=== PATIENT | male | born 1990 | race Two or more races ===

== ENCOUNTER 2017-05-04 14:55 | Emergency (ER) | payer SELFPAY ==
[2017-05-04] MEDS ORDERED: LORATADINE 10 MG TABLET PO ONE (17:25)
[2017-05-04] MEDS ORDERED: PSEUDOEPHEDRINE HCL 30 MG TABLET PO ONE (17:25)
[2017-05-04] MEDS ORDERED: GUAIFENESIN 600 MG TABLET.SA PO ONE (17:25)
[2017-05-04] MEDS ORDERED: IBUPROFEN 600 MG TABLET PO ONE (17:26)
--- NOTE | 2017-05-04 17:30 | ER Document Report ---
ED ENT - General Chief Complaint: Sore Throat Stated Complaint: POSSIBLE FLU Time Seen by Provider: 05/04/17 17:07 Mode of Arrival: Ambulatory Information source: Patient Notes: 26-year-old male presented ED for cough cold congestion sore throat started last week. States he had some vomiting but none today. States he coughed up some phlegm but no actual expectorant. States he has had a sore throat for week fever for a week but none in the last 2 days. TRAVEL OUTSIDE OF THE [place] IN LAST 30 DAYS: No - HPI Patient complains to provider of: Nose problem, Throat problem Onset: Last week Onset/Duration: Intermittent Quality of pain: Sharp Severity: Moderate Pain Level: 2 Context: Recent Illness Location of pain: Face, Nose, Sinus, Throat Associated symptoms: Chills, Congestion, Cough, Runny nose, Sinus pain, Sinus drainage, Sore throat Similar symptoms previously: Yes Recently seen / treated by doctor: No - Related Data Allergies/Adverse Reactions: No Known Allergies Allergy (Verified 05/04/17 14:56) Past Medical History - General Information source: Patient - Social History Smoking Status: Current Every Day Smoker Cigarette use (# per day): Yes - 2-3 cigarettes a day Smoking Education Provided: Yes - 4 minutes Frequency of alcohol use: Rare Drug Abuse: Marijuana Occupation: Counseling Aide Lives with: Friend Family History: CAD, CVA, DM, Hyperlipidemia, Hypertension, Malignancy. denies : Arthritis, COPD, Thyroid Disfunction Patient has suicidal ideation: No Patient has homicidal ideation: No - Past Medical History Cardiac Medical History: Reports: None Pulmonary Medical History: Reports: None EENT Medical History: Reports: None Neurological Medical History: Reports: None Endocrine Medical History: Reports: None Renal/ Medical History: Reports: None Malignancy Medical History: Reports None GI Medical History: Reports: None Musculoskeltal Medical History: Reports None Skin Medical History: Reports None Psychiatric Medical History: Reports: None Traumatic Medical History: Reports: None Infectious Medical History: Reports: None Surgical Hx: Negative Past Surgical History: Reports: None Review of Systems - Review of Systems Notes: Constitutional: [PRESENT: as per HPI. ABSENT: weight gain, weight loss] complains of fevers chills headaches last week no fever last 2 days Eyes: [ABSENT: visual disturbances] Ears: [ABSENT: hearing changes] Nasopharyngeal: Complains of congestion runny nose sore throat Cardiovascular: [ABSENT: chest pain, dyspnea on exertion, edema, orthropnea, palpitations] Respiratory: Complains of cough with expectorant of phlegm Gastrointestinal: [ABSENT: abdominal pain, constipation, hematemesis, hematochezia] states he has had diarrhea or nausea and vomiting off and on but none today. Genitourinary: [ABSENT: dysuria, hematuria] Musculoskeletal: [ABSENT: joint swelling] complains of body aches Integumentary: [ABSENT: rash, wounds] Neurological: [ABSENT: abnormal gait, abnormal speech, confusion, dizziness, focal weakness, syncope] Psychiatric: [ABSENT: anxiety, depression, homicidal ideation, suicidal ideation ] Endocrine: [ABSENT: cold intolerance, heat intolerance, menstrual abnormalities , polydipsia, polyuria] Hematologic/Lymphatic: [ABSENT: easy bleeding, easy bruising, lymphadenopathy] Physical Exam - Vital signs Vitals: Temp Pulse Resp BP Pulse Ox 98.9 F 85 16 127/75 H 97 05/04/17 14:59 05/04/17 14:59 05/04/17 14:59 05/04/17 14:59 05/04/17 14:59 - Notes Notes: PHYSICAL EXAMINATION: GENERAL: Well-appearing, well-nourished and in no acute distress. HEAD: Atraumatic, normocephalic. EYES: Pupils equal round and reactive to light, extraocular movements intact, sclera anicteric, conjunctiva are normal. ENT: Erythematous nasal turbinates with purulent nasal drainage, postnasal drip , erythematous pharynx without exudates. Moist mucous membranes. NECK: Normal range of motion, supple without lymphadenopathy LUNGS: Breath sounds clear to auscultation bilaterally and equal. No wheezes rales or rhonchi. HEART: Regular rate and rhythm without murmurs ABDOMEN: Soft, nontender, nondistended abdomen. No guarding, no rebound. No masses appreciated. Musculoskeletal: Normal range of motion, no pitting or edema. No cyanosis. NEUROLOGICAL: Cranial nerves grossly intact. Normal speech, normal gait. Normal sensory, motor exams PSYCH: Normal mood, normal affect. SKIN: Warm, Dry, normal turgor, no rashes or lesions noted. Course - Re-evaluation Re-evalutation: 05/05/17 01:16 Assessment consistent with an upper respiratory infection. Patient was treated with Mucinex Claritin and Sudafed and ibuprofen. Patient was given instructions on things that he can use for his cough and cold symptoms. Patient verbalized understanding of instructions. Patient to follow-up with his primary doctor. - Vital Signs Vital signs: Temp Pulse Resp BP Pulse Ox 98.9 F 71 18 132/82 H 99 05/04/17 14:59 05/04/17 17:46 05/04/17 17:46 05/04/17 17:46 05/04/17 17:46 Discharge - Discharge Clinical Impression: Viral syndrome, Sore throat (viral) URI (upper respiratory infection) Qualifiers: URI type: unspecified URI Qualified Code(s): J06.9 - Acute upper respiratory infection, unspecified Disposition: HOME, SELF-CARE Instructions: Family Physicians / Practices Additional Instructions: Viral Syndrome The physician has diagnosed a viral infection. Viruses not only cause "colds," but can cause many different symptoms including generalized aching, fever, headache, cough, diarrhea, nausea, vomiting, and fatigue. The treatment, for the most part, is simply relief of symptoms. This means that antibiotics are usually not given. Rest, fluids, pain medications and, occasionally, medication for the specific symptoms that are most bothersome will be prescribed. Use good handwashing to avoid passing the virus to others. Shared toys should be cleaned with disinfectant. Clean the toilets, sinks, and counter surfaces in bathrooms. Launder clothing in hot water. Contact the physician if you develop any new or unusual symptoms such as severe headache, stiff neck, high fever, chest pain, productive cough, or shortness of breath. You should be rechecked if you don't see marked improvement within seven to 10 days. SORE THROAT: Sore throats may be caused by viruses, bacteria, or fungi. Most are due to a virus, and must get better on their own. Bacterial sore throats, particularly those due to "strep," need treatment with antibiotics. If an antibiotic is prescribed, be sure to take the medication for a full 10 days. Failure to take the antibiotic can result in complications such as rheumatic fever. Sometimes, an injection of antibiotics is given instead of pills or liquid. This single "shot" is equal in effectiveness to the oral medication. To relieve symptoms, take acetaminophen for pain. Sip clear liquids frequently, or eat popsicles or ice chips. Anesthetic sprays or lozenges may help. Make sure the air in the room is not too dry. Avoid using decongestants or antihistamines. Call the doctor if there is no improvement in two days, or if you have difficulty breathing, increasing throat pain, high fever, rash, or frequent vomiting. UPPER RESPIRATORY ILLNESS: You have a viral infection of the respiratory passages -- a "cold." This common infection causes nasal congestion, drainage, and often sore throat and cough. It is highly contagious. The disease usually lasts about 10 to 14 days. There is no "cure" for the viral infection -- it must run its course. If there is a complication, such as bacterial infection in the nose, sinuses, middle ear, or bronchial tubes, antibiotics may be required. The antibiotics won't affect the virus. Drink plenty of fluids. A humidifier may help. An expectorant medication or decongestant may make you more comfortable. Use acetaminophen or ibuprofen for fever or aches. See the doctor if fever persists over two days, if there is any significant worsening of your symptoms, or if you simply fail to improve as expected. DECONGESTANT MEDICATION: A decongestant medicine has been prescribed. Often this medicine is combined in the same tablet with an antihistamine or expectorant. This type of medicine is helpful in treating a bad cold or sinus condition, as well as in treatment of the nasal congestion of hay fever. It is not of much benefit for lung infections. Decongestant medicines are related to stimulants. They can cause an increase in blood pressure and heart rate. Persons with heart disease and high blood pressure should not take decongestants without discussing this with the physician. If you develop palpitations, chest pain, headache, or tremors, stop the medicine and consult your physician. COUGH-SUPPRESSANT & EXPECTORANT MEDICATION: You are to use a cough medication as needed for relief of symptoms. This medicine is a combination of an expectorant (to make the mucous thinner and more easily "coughed up") and a cough suppressant (to reduce the frequency of coughing). The cough-suppressant medicine is related to narcotics. You may experience mild nausea and sleepiness. Some patients who are very sensitive to narcotics may have stomach pain from this medicine. Taking the medicine with food reduces these side effects. Do not drive or work with machinery until you know how this medicine affects you. The expectorant should have no side effects. Iodine-containing expectorants (such as organidin) should not be taken by persons with active thyroid disease unless approved by your doctor. Call the doctor if you develop shortness of breath, hives, rash, itching, lightheadedness, or severe nausea and vomiting. USE OF ACETAMINOPHEN (Tylenol): Acetaminophen may be taken for pain relief or fever control. It's much safer than aspirin, offering a wider range of "safe" dosages. It is safe during . Some brand names are Tylenol, Panadol, Datril, Anacin 3, Tempra, and Liquiprin. Acetaminophen can be repeated every four hours. The following are maximum recommended dosages: >89 pounds or adults 650 mg to 900 mg Acetaminophen can be repeated every four hours. Maximum dose not to exceed 4000 mg a day. SMOKING: If you smoke, you should stop smoking. The tar and chemicals in cigarette smoke are harmful. Smoking has been shown to cause: emphysema chronic bronchitis lung cancer mouth and throat cancer stomach and pancreas cancer premature aging defects In addition, smoking increases ear and lung infections in children of smokers. He had been treated with Claritin 10 mg, Sudafed 30 mg, Mucinex 600 mg, and ibuprofen 600 mg in the emergency room. These are all [id number]. These were all help your symptoms. He can also try Flonase 2 sprays each nostril twice a day up with your symptoms. Another remedy to help with your cough and cold symptoms is salt and soda solution gargles Salt and soda solution 1 quart of water 1 tablespoon of salt 1 teaspoon of baking soda Mixed 3 ingredients together and boil for 1 minute Placed in a covered quart jar Use 1/2 ounce of cold solution to gargle 3 times a day FOLLOW-UP CARE: If you have been referred to a physician for follow-up care, call the physician s office for an appointment as you were instructed or within the next two days. If you experience worsening or a significant change in your symptoms, notify the physician immediately or return to the Emergency Department at any time for re-evaluation. Forms: Elevated Blood Pressure, Smoking Cessation Education, Return to Work
[2017-05-04 17:47] VITALS: BP 132/82
== END 2017-05-04 17:47 | disposition home or self-care (01) ==
LOC: ER 14:55
DX: J06.9 Acute upper respiratory infection, unspecified (principal); J02.8 Acute pharyngitis due to other specified organisms; B97.89 Other viral agents as the cause of diseases classified elsewhere; R05 Cough; J34.89 Other specified disorders of nose and nasal sinuses; F17.210 Nicotine dependence, cigarettes, uncomplicated; Z71.6 Tobacco abuse counseling
CPT/HCPCS: 99282; 99406

== ENCOUNTER 2017-06-06 17:02 | Emergency (ER) | payer SELFPAY ==
[2017-06-06] MEDS ORDERED: ONDANSETRON 4 MG TAB.RAPDIS PO ONE (18:13)
--- NOTE | 2017-06-06 18:15 | ER Document Report ---
ED General - General Chief Complaint: Vomiting/Diarrhea Stated Complaint: VOMITING Time Seen by Provider: 06/06/17 18:00 Mode of Arrival: Ambulatory Information source: Patient Notes: 19-year-old male presents with complaints of abdominal pain nausea vomiting diarrhea this morning. Patient notes he has had 5 episodes of vomiting one episode with streaks of red blood. One episode of diarrhea with no blood. Patient notes only pain in the epigastric region. He denies any chills admits to mild fever at home TRAVEL OUTSIDE OF THE [place] IN LAST 30 DAYS: No - HPI Onset: Just prior to arrival Onset/Duration: Sudden Quality of pain: Sharp Severity: Mild Pain Level: 1 Associated symptoms: Diarrhea, Nausea, Vomiting Exacerbated by: Denies Relieved by: Denies Similar symptoms previously: No Recently seen / treated by doctor: No - Related Data Allergies/Adverse Reactions: No Known Allergies Allergy (Verified 05/04/17 14:56) Past Medical History - Social History Smoking Status: Never Smoker Cigarette use (# per day): No Chew tobacco use (# tins/day): No Smoking Education Provided: No Family History: CAD, CVA, DM, Hyperlipidemia, Hypertension, Malignancy. denies : Arthritis, COPD, Thyroid Disfunction Renal/ Medical History: Denies: Hx Peritoneal Dialysis Review of Systems - Review of Systems Notes: REVIEW OF SYSTEMS: CONSTITUTIONAL : Denies fever, chills, or sweats. Denies recent illness. EENT: Denies eye, ear, throat, or mouth pain or symptoms. Denies nasal or sinus congestion or discharge. Denies throat, tongue, or mouth swelling or difficulty swallowing. CARDIOVASCULAR: Denies chest pain. Denies palpitations or racing or irregular heart beat. Denies ankle edema. RESPIRATORY: Denies cough, cold, or chest congestion. Denies shortness of breath, difficulty breathing, or wheezing. GASTROINTESTINAL: Abdominal pain nausea vomiting diarrhea GENITOURINARY: Denies difficulty urinating, painful urination, burning, frequency, blood in urine, or discharge. MUSCULOSKELETAL: Denies back or neck pain or stiffness. Denies joint pain or swelling. SKIN: Denies rash, lesions or sores. HEMATOLOGIC : Denies easy bruising or bleeding. LYMPHATIC: Denies swollen, enlarged glands. NEUROLOGICAL: Denies confusion or altered mental status. Denies passing out or loss of consciousness. Denies dizziness or lightheadedness. Denies headache. Denies weakness or paralysis or loss of use of either side. Denies problems with gait or speech. Denies sensory loss, numbness, or tingling. Denies seizures. PSYCHIATRIC: Denies anxiety or stress. Denies depression, suicidal ideation, or homicidal ideation. ALL OTHER SYSTEMS REVIEWED AND NEGATIVE. Dictation was performed using [employer] voice recognition software PHYSICAL EXAMINATION: GENERAL: Well-appearing, well-nourished and in no acute distress. HEAD: Atraumatic, normocephalic. EYES: Pupils equal round and reactive to light, extraocular movements intact, sclera anicteric, conjunctiva are normal. ENT: Nares patent, oropharynx clear without exudates. Moist mucous membranes. NECK: Normal range of motion, supple without lymphadenopathy LUNGS: Breath sounds clear to auscultation bilaterally and equal. No wheezes rales or rhonchi. HEART: Regular rate and rhythm without murmurs ABDOMEN: Soft, nontender, nondistended abdomen. No guarding, no rebound. No masses appreciated. Musculoskeletal: Normal range of motion, no pitting or edema. No cyanosis. NEUROLOGICAL: Cranial nerves grossly intact. Normal speech, normal gait. Normal sensory, motor exams PSYCH: Normal mood, normal affect. SKIN: Warm, Dry, normal turgor, no rashes or lesions noted. Physical Exam - Vital signs Vitals: Temp Pulse Resp BP Pulse Ox 98.4 F 69 16 126/87 H 99 06/06/17 17:34 06/06/17 17:34 06/06/17 17:34 06/06/17 17:34 06/06/17 17:34 Course - Re-evaluation Re-evalutation: 06/06/17 18:15 Patient's presentation is extremely benign, he will be given Zofran for his symptoms otherwise looks well, I have very low suspicion for any life- threatening issues 06/06/17 19:57 Patient symptoms improved after Reglan I will discharge him home with nausea control and close follow-up otherwise he looks well is in no distress After performing a Medical Screening Examination, I estimate there is LOW risk for ACUTE APPENDICITIS, BOWEL OBSTRUCTION, ACUTE CHOLECYSTITIS, PERFORATED DIVERTICULITIS, INCARCERATED HERNIA, PANCREATITIS, TESTICULAR TORSION or PERFORATED ULCER, thus I consider the discharge disposition reasonable. Also, there is no evidence or peritonitis, sepsis, or toxicity. I have reevaluated this patient multiple times and no significant life threatening changes are noted. The patient and I have discussed the diagnosis and risks, and we agree with discharging home with close follow-up with the understanding that symptoms and presentations can change. We also discussed returning to the Emergency Department immediately if new or worsening symptoms occur. We have discussed the symptoms which are most concerning (e.g., bloody stool, fever, changing or worsening pain, intractable vomiting - standard verbal up date) that necessitate immediate return. - Vital Signs Vital signs: Temp Pulse Resp BP Pulse Ox 98.4 F 69 16 126/87 H 99 06/06/17 17:34 06/06/17 17:34 06/06/17 17:34 06/06/17 17:34 06/06/17 17:34 Discharge - Discharge Clinical Impression: Nausea vomiting and diarrhea Condition: Stable Disposition: HOME, SELF-CARE Instructions: Vomiting ([facility]), Viral Syndrome ([facility]) Additional Instructions: Follow up with your physician tomorrow for further care or return to the ED IMMEDIATELY if symptoms worsen or new concerns occur. If you cannot afford to follow up with your primary care physician a list of low cost clinics have been provided at the end of your discharge papers as well. Prescriptions: Metoclopramide HCl [Reglan 10 mg Tablet] 1 - 2 tab PO ASDIR PRN #25 tablet PRN Reason: Forms: Return to Work Referrals: BK ZEPEDA MD [ACTIVE STAFF] - Follow up tomorrow
[2017-06-06] MEDS ORDERED: METOCLOPRAMIDE HCL INJ/PF 10 MG/2 ML SDV IM ONE (19:00)
[2017-06-06 20:04] VITALS: BP 122/85
== END 2017-06-06 20:00 | disposition home or self-care (01) ==
LOC: ER 17:02
DX: K92.0 Hematemesis (principal); R19.7 Diarrhea, unspecified; R10.13 Epigastric pain
CPT/HCPCS: 99283; 96372; S0119; J2765

== ENCOUNTER 2017-12-15 09:02 | Emergency (ER) | payer SELFPAY ==
--- NOTE | 2017-12-15 09:22 | ER Document Report ---
ED Medical Screen (RME) - General Chief Complaint: Shortness Of Breath Stated Complaint: DIFFICULTY BREATHING Time Seen by Provider: 12/15/17 09:14 TRAVEL OUTSIDE OF THE [place] IN LAST 30 DAYS: No - HPI Patient complains to provider of: chest pain Onset: Other - This 19-year-old male with persistent chest pain over the last several months with associated cough as well as hemoptysis. He is not seen anybody for this in the past has been using Zantac without any improvement in his symptoms. Is a smoker every day. Denies any previous health history. - Related Data Allergies/Adverse Reactions: No Known Allergies Allergy (Verified 12/15/17 09:06) Past Medical History - Social History Frequency of alcohol use: Rare Drug Abuse: Marijuana Renal/ Medical History: Denies: Hx Peritoneal Dialysis Physical Exam - Vital signs Vitals: Temp Pulse Resp BP Pulse Ox 98.1 F 60 14 126/74 H 98 12/15/17 09:05 12/15/17 09:05 12/15/17 09:05 12/15/17 09:05 12/15/17 09:05 Course - Re-evaluation Re-evalutation: 12/15/17 09:22 I have performed a rapid medical screening exam, I have evaluated the patient, I have made a determination based on this patient's medical condition for further evaluation. - Vital Signs Vital signs: Temp Pulse Resp BP Pulse Ox 98.1 F 60 14 126/74 H 98 12/15/17 09:05 12/15/17 09:05 12/15/17 09:05 12/15/17 09:05 12/15/17 09:05
[2017-12-15] MEDS ORDERED: ALBUTEROL SULFATE 0.083% NEB 2.5 MG/3 ML AMPUL NEB ONE (09:23)
[2017-12-15 09:55] LABS: ABSOLUTE EOSINOPHILS # (AUTO) 0.2 10^3/uL (0.0-0.6); ABSOLUTE LYMPHOCYTES (AUTO) 2.3 10^3/uL (0.5-4.7); ABSOLUTE MONOCYTES (AUTO) 0.6 10^3/uL (0.1-1.4); ABSOLUTE NEUT (AUTO) 3.5 10^3/uL (1.7-8.2); BASOPHILS % (AUTO) 0.5 % (0-2); EOSINOPHILS % (AUTO) 2.4 % (0-6); HEMATOCRIT 43.8 % (37.9-51.0); HEMOGLOBIN 15.1 g/dL (13.5-17.0); LYMPHOCYTES % (AUTO) 34.3 % (13-45); MEAN CORPUSCULAR HEMOGLOBIN 31.4 pg (27.0-33.4); MEAN CORPUSCULAR HGB CONC 34.4 g/dL (32.0-36.0); MEAN CORPUSCULAR VOLUME 91 fl (80-97); MONOCYTES % (AUTO) 9.7 % (3-13); PLATELET COUNT 247 10^3/uL (150-450); RED CELL DISTRIBUTION WIDTH 13.4 % (11.5-14.0); SEGMENTED NEUTROPHILS % (AUTO) 53.1 % (42-78); TOTAL CELLS COUNTED % (AUTO) 100 %; WHITE BLOOD COUNT 6.6 10^3/uL (4.0-10.5)
--- NOTE | 2017-12-15 10:04 | RADIOLOGY REPORT (SQ) ---
EXAM DESCRIPTION: CHEST 2 VIEWS COMPLETED DATE/TIME: 12/15/2017 9:39 am REASON FOR STUDY: cough and chest pain COMPARISON: None. EXAM PARAMETERS: NUMBER OF VIEWS: two views TECHNIQUE: Digital Frontal and Lateral radiographic views of the chest acquired. RADIATION DOSE: NA LIMITATIONS: none FINDINGS: LUNGS AND PLEURA: No opacities, masses or pneumothorax. No pleural effusion. MEDIASTINUM AND HILAR STRUCTURES: No masses or contour abnormalities. HEART AND VASCULAR STRUCTURES: Heart normal size. No evidence for failure. BONES: No acute findings. HARDWARE: None in the chest. OTHER: No other significant finding. IMPRESSION: NO ACUTE RADIOGRAPHIC FINDING IN THE CHEST. TECHNICAL DOCUMENTATION: JOB ID: [id number] [employer]- All Rights Reserved Reading location - IP/workstation name: [email or web address]
[2017-12-15 10:17] LABS: ALANINE AMINOTRANSFERASE 45 U/L (21-72); ALBUMIN 3.2 g/dL (3.5-5.0); ALKALINE PHOSPHATASE 38 U/L (38-126); ANION GAP 6 (5-19); ASPARTATE AMINO TRANSFERASE 28 U/L (17-59); BILIRUBIN,DIRECT 0.2 mg/dL (0.0-0.4); BILIRUBIN,TOTAL 0.3 mg/dL (0.2-1.3); BLOOD UREA NITROGEN 10 mg/dL (7-20); CALCIUM 8.9 mg/dL (8.4-10.2); CARBON DIOXIDE 28 mmol/L (22-30); CHLORIDE 107 mmol/L (98-107); GLUCOSE 102 mg/dL (75-110); SODIUM 141.3 mmol/L (137-145); TOTAL PROTEIN 5.5 g/dL (6.3-8.2)
--- NOTE | 2017-12-15 12:01 | ER Document Report ---
ED General - General Chief Complaint: Shortness Of Breath Stated Complaint: DIFFICULTY BREATHING Time Seen by Provider: 12/15/17 09:14 Mode of Arrival: Ambulatory Information source: Patient, Relative Notes: Patient is a 27-year-old male comes emergency room complaining of left-sided chest pain. Patient states his been going on for 3 months and that it only hurts him at night when he sleeps and it feels like someone is sitting on his chest when he goes to sleep. States that it goes away during the day but when he is awake he does have periods of dry hacking cough. He does admit to smoking at least 1 pack of cigarettes a day. 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 Family history of leukemia diabetes and heart disease. Patient denies any fevers. Pain is located left side chest on the sternal border. Again he states it feels like someone is sitting on his chest. There is a minimal positive family history of cardiac problems father had his first NH at age 43 both grandparents have had heart attacks in her later years. Patient currently does not have any other medical problems. TRAVEL OUTSIDE OF THE [place] IN LAST 30 DAYS: No - HPI Onset: Other - 3 months Onset/Duration: Gradual, Persistent Quality of pain: Pressure Severity: Moderate Pain Level: 3 Associated symptoms: Chest pain, Nonproductive cough, Headache, Hurts to breath. denies: Earache, Fever, Sinus pain/drainage, Shortness of breath Exacerbated by: Other - Laying down, deep breathing and by palpation. Relieved by: Remaining still Similar symptoms previously: Yes Recently seen / treated by doctor: No - Related Data Allergies/Adverse Reactions: No Known Allergies Allergy (Verified 12/15/17 09:06) Past Medical History - General Information source: Patient - Significant other - Social History Smoking Status: Current Every Day Smoker Cigarette use (# per day): Yes Chew tobacco use (# tins/day): Yes Frequency of alcohol use: Rare Drug Abuse: None, Marijuana Lives with: Family Family History: CAD, CVA, DM, Hyperlipidemia, Hypertension, Malignancy. denies : Arthritis, COPD, Thyroid Disfunction Patient has suicidal ideation: No Patient has homicidal ideation: No Renal/ Medical History: Denies: Hx Peritoneal Dialysis Review of Systems - Review of Systems Constitutional: No symptoms reported, Weakness EENT: No symptoms reported Cardiovascular: No symptoms reported, See HPI, Chest pain Respiratory: Cough, Hurts to breathe Gastrointestinal: No symptoms reported Genitourinary: No symptoms reported Male Genitourinary: No symptoms reported Musculoskeletal: No symptoms reported Skin: No symptoms reported Hematologic/Lymphatic: No symptoms reported Neurological/Psychological: No symptoms reported -: Yes All other systems reviewed and negative Physical Exam - Vital signs Vitals: Temp Pulse Resp BP Pulse Ox 98.1 F 60 14 126/74 H 98 12/15/17 09:05 12/15/17 09:05 12/15/17 09:05 12/15/17 09:05 12/15/17 09:05 - Notes Notes: Patient is well-nourished well-developed 19-year-old male who is in no apparent distress. - General General appearance: Appears well, Alert In distress: None - HEENT Head: Normocephalic, Atraumatic Eyes: Normal - Respiratory Respiratory status: No respiratory distress Chest status: Tender, Pain on movement, Pain with cough, Pain with deep breathing. No: No pleuritic chest pain, Accessory muscle use, Prolonged expirations, Splinting Breath sounds: Decreased air movement, Nonproductive cough. No: Rales, Rhonchi , Stridor, Wheezing, Other Chest palpation: Normal - Cardiovascular Rhythm: Regular Heart sounds: Normal auscultation Murmur: No - Abdominal Inspection: Normal Distension: No distension Bowel sounds: Normal Tenderness: Nontender Organomegaly: No organomegaly - Neurological Neuro grossly intact: Yes Cognition: Normal Orientation: AAOx4 Carlee Coma Scale Eye Opening: Spontaneous Carlee Coma Scale Verbal: Oriented Carlee Coma Scale Motor: Obeys Commands [place] Coma Scale Total: 15 Speech: Normal - Skin Skin Moisture: Dry Skin Color: Normal, Petechiae Skin Turgor: Elastic Course - Re-evaluation Re-evalutation: 12/15/17 12:05 Patient workup has been essentially negative. His troponin is negative his d- dimer is negative his EKG shows normal sinus rhythm at a rate of 56. He got low risk factors with the exception of he smokes a pack cigarettes a day. He is a quite active gentleman works at a [employer]. I believe that his discomfort and pain since I can pinpoint reproduce it between intercostal spaces around 5 6 and 7 on the left side of the chest with point tenderness. We will try him on some anti-inflammatory medications and a little muscle relaxer for her discomfort. He may need a stress test in the future but leave it can be done as an outpatient. Patient's total workup has been negative. His second troponin was normal. He is feeling okay. I have gone and talk to him and suggested that outpatient stress testing would be appropriate and that he needs to establish with a primary care provider. I am going to give him the list of our family practice and see if he can get established. I am also going to write him a little Tylenol with codeine for his cough during the night and put him on an anti-inflammatory muscle relaxer for that intercostal pain discomfort. Further discussion with patient and his work he does lifting of anywhere from 80-120 pounds and then states sometimes heavier with help. This may be 1 of his aggravating sources. Tried to tell him that that is probably a contributing factor should be avoided if possible but as he says that his job. 12/15/17 13:55 - Vital Signs Vital signs: Temp Pulse Resp BP Pulse Ox 98.1 F 60 14 126/74 H 98 12/15/17 09:05 12/15/17 09:05 12/15/17 09:05 12/15/17 09:05 12/15/17 09:05 - Laboratory Result Diagrams: 12/15/17 09:25 12/15/17 09:25 Laboratory results interpreted by me: 12/15/17 09:25 Total Protein 5.5 L Albumin 3.2 L Discharge - Discharge Clinical Impression: Costochondritis, Atypical chest pain, Bronchitis Condition: Stable Disposition: HOME, SELF-CARE Instructions: Bronchitis With Bronchospasm (Wheezing) ([facility]), Costochondritis ( [facility]), Family Physicians / Practices Additional Instructions: As we discussed I believe this area of discomfort was related to the coughing and to your heavy lifting. As we discussed also you do need to establish with a primary care provider and I would highly recommend that you establish and you can have an outpatient stress test down the road. A 27 years of age I have got low suspicion that any of this is cardiac. I believe that most of it has to do with your smoking and your work. So we are going to do a few prescriptions for breathing and as well as for inflammation of the chest presentation and muscle spasms or relaxing. You may try ice to the area when you come home at night. Or you may use some moist heat. Light stretching before you go to work always helps. Should you have any concerns or problems return to ER for recheck. Prescriptions: Acetaminophen with Codeine [Tylenol #3 Tablet] 1 each PO Q4HP PRN #12 tablet PRN Reason: Albuterol Sulfate [Proair Hfa Inhalation Aerosol 8.5 gm Mdi] 2 puff IH Q4 PRN # 1 mdi PRN Reason: Methocarbamol [Robaxin 750 mg Tablet] 750 mg PO ASDIR PRN #20 tablet PRN Reason: Prednisone [Sterapred Ds] 10 mg PO ASDIR PRN 6 Days #1 tab.ds.pk PRN Reason: Forms: Elevated Blood Pressure, Smoking Cessation Education, Return to Work
[2017-12-15 14:34] VITALS: BP 135/86
--- NOTE | 2017-12-15 19:51 | EKG REPORT ---
SEVERITY:- NORMAL ECG - SINUS RHYTHM : Confirmed by: Lucretia Min MD 15-Dec-2017 19:51:04
== END 2017-12-15 14:34 | disposition home or self-care (01) ==
LOC: ER 09:02
DX: M94.0 Chondrocostal junction syndrome [Tietze] (principal); J40 Bronchitis, not specified as acute or chronic; R07.89 Other chest pain; R05 Cough; F17.210 Nicotine dependence, cigarettes, uncomplicated; R51 Headache; Z82.49 Family history of ischemic heart disease and other diseases of the circulatory system
CPT/HCPCS: 36415; 71046; 80053; 84484; 85025; 85379; 93005; 93010; 94640; 99285